=== PATIENT | male | born 1965 | race American Indian/Alaskan Native ===

== ENCOUNTER 2018-11-24 13:14 | Outpatient (CLI) | payer MEDICAID | END 2018-11-24 13:15 | disposition home or self-care (01) | LOC: C.PAT 13:14 | DX: R22.1 Localized swelling, mass and lump, neck (principal) ==

== ENCOUNTER 2018-11-29 06:47 | Day surgery (SDC) | payer MEDICAID ==
[2018-11-24 13:28] VITALS: BMI 30.1
[2018-11-29] MEDS ORDERED: Lidocaine Hydrochloride 0 ML INJ ONE (09:09)
[2018-11-29] MEDS ORDERED: Bupivacaine 0.25% 20 ML INJ IJ ONE (09:09)
[2018-11-29] MEDS ORDERED: ceFAZolin 1 gm in NS 2 GM/200 ML BAG IVPB ONE (09:09)
[2018-11-29] MEDS ORDERED: Midazolam 2 MG/2 ML VIAL ONE (09:35)
[2018-11-29] MEDS ORDERED: Propofol 10 mg/ml Inj (20 ML) ONE (09:36)
[2018-11-29] MEDS ORDERED: Rocuronium 10 mg/ml (5 ml) ONE (10:05)
[2018-11-29] MEDS ORDERED: Neostigmine 1:1000 (1 mg/ml) Inj ONE (10:29)
--- NOTE | 2018-11-29 10:29 | PCM.SURG1 ---
Surgeon's Initial Post Op Note - Surgeon's Notes Surgeon: Eze Bergman MD Land Surveying Manager: DEBBI [id number], MS [id number] Pre-Operative Diagnosis: Right posterior neck mass Operative Findings: necrotic lipoma Post-Operative Diagnosis: Right posterior neck mass Operation Performed: Excision of right posterior neck mass Specimen/Specimens Removed: neck mass Estimated Blood Loss: EBL {In ML}: 5 Date of Surgery/Procedure: 11/29/18 Time of Surgery/Procedure: 10:29
[2018-11-29] MEDS ORDERED: Albuterol 0.083% Inhal Sol (2.5 mg/3 mL) UD INH ONE (10:40)
[2018-11-29] MEDS: HYDROmorphone 0.5 mg/0.5 ml ISec IVP PRN ×2 (10:48→10:49)
[2018-11-29 13:19] VITALS: BP 119/67; PULSE 100; RESP 18; TEMP 97.7; O2SAT 96
--- NOTE | 2018-11-30 03:02 | OP ---
PROCEDURE DATE: 11/29/2018 PREOPERATIVE DIAGNOSIS: Right posterior neck mass. POSTOPERATIVE DIAGNOSIS: Right posterior neck mass. SURGEON: Eze Bergman MD TRANSMISSION AND PROTECTION ENGINEER: Dionte العراقي DO ANESTHESIA ADMINISTERED BY: Dany Pena MD TYPE OF ANESTHESIA: General. OPERATION PERFORMED: Excision of posterior neck mass. DESCRIPTION OF PROCEDURE: Upon intubation and sedation, the patient was prepped and draped in the usual sterile fashion. The patient was laid prone. Upon timeout, incision was made on top of the patient's right posterior neck mass. Dissection was done using a small Sharita all the way down to the level of the mass which was noted to be an infected lipoma. Upon dissection of the mass, it was excised using cautery all the way to the level of the fascia. Mass was taken out in its totality and sent for pathology. Wound was irrigated with normal saline and closed with 4-0 Monocryl and Dermabond. The patient tolerated the procedure well, was taken to the postoperative care unit without any complication. Estimated blood loss was 5 mL. Dionte العراقي DO Eze Bergman MD
== END 2018-11-29 13:10 | disposition home or self-care (01) ==
LOC: C.SDS 06:47
PROVIDERS: ATTEND Specialist
DX: D17.0 Benign lipomatous neoplasm of skin and subcutaneous tissue of head, face and neck (principal)
CPT/HCPCS: 21555; 88304; J0690; J1170; J2001; J2250; J2405; J2704; J2710; J3010